=== PATIENT | male | born 1960 | race Two or more races ===

== ENCOUNTER 2020-09-01 16:49 | Emergency (ER) | payer OTHER ==
[2020-09-01] MEDS ORDERED: Lactated Ringers 500 ML IV ONE (17:03)
[2020-09-01] MEDS ORDERED: Sodium Chloride 0.9% 10 ML Syringe FLUSH PRN (17:03)
[2020-09-01] MEDS ORDERED: Iopamidol 612 MG/ML 50 ML SDV IVPUSH ONE (17:03)
[2020-09-01] MEDS ORDERED: Iopamidol 612 MG/ML 100 ML Bottle IVPUSH ONE (17:03)
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
[2020-09-01] MEDS ORDERED: Lactated Ringers 1,000 ML IV SCH ×2 (17:15→20:30)
--- NOTE | 2020-09-01 17:39 | CT ---
CT cervical spine Technique: Multiple axial sections were obtained from above C1 inferiorly to the top of T2. Reconstructed coronal and sagittal images were obtained. Comparison: No prior cervical spine imaging is available. Findings: Minimal disc space narrowing is noted at C5-6. Anterior osteophytes are seen at C3-4 through C6-7. Mild posterior osteophytes are noted at C5-6 and C6-7. Small degenerative cystic change is noted within the inferior C5 vertebral body. Mild degenerative apophyseal change is seen. Moderate right-sided neural foraminal stenosis is seen at C3-4. Mild right-sided neural foraminal stenosis is noted at C4-5. Other neural foramina are felt to be fairly well patent. No fracture is seen. No abnormal subluxation is seen. Minimal scoliosis is noted. Impression: 1. Degenerative change and mild scoliosis. 2. Nothing acute is appreciated on CT study of the cervical spine. Diagnostic code #2
--- NOTE | 2020-09-01 17:45 | CT ---
Head CT Technique: Multiple axial sections through the brain were obtained. Intravenous contrast was not utilized. Reconstructed coronal and sagittal images were obtained. Comparison: No previous intracranial imaging is available. Findings: Ventricles along with basal cisterns and sulci over the convexities are within normal limits for the patient's age. Small high density area is seen within the posterior right temporal region which measures approximately 2 mm. This is most likely due to an incidental small calcification. No other abnormal parenchymal densities are seen. No evidence of intracranial hemorrhage is seen. No midline shift or mass-effect is seen. Bone window settings were reviewed. No acute calvarial abnormality is appreciated. Mucosal thickening is seen within both maxillary sinuses with mild mucosal thickening seen within the ethmoid sinuses. No acute mastoid sinus finding is seen. Impression: 1. Sinus findings which are most likely chronic. 2. Small finding felt to represent incidental calcification. 3. Nothing acute is seen on noncontrast head CT exam. Diagnostic code #2
[2020-09-01] MEDS ORDERED: Diphtheria,Pertussis(Acell),Tetanus Vaccine 0.5 ML Syringe IM ONE (17:56)
--- NOTE | 2020-09-01 17:57 | CT ---
CT chest Technique: Multiple axial sections through the chest were obtained. Intravenous contrast was utilized. Reconstructed coronal and sagittal images were obtained. Comparison: No prior CT chest or chest x-rays are available. Findings: Lungs are clear with no acute parenchymal change. No pleural effusions are seen. No pneumothorax is identified. Thoracic aorta shows mild atherosclerotic calcification. No mediastinal adenopathy is seen. No axillary adenopathy is seen. Bone window settings were reviewed. Slight degenerative spurring is seen within the lower thoracic spine. No acute osseous abnormality is appreciated. Impression: 1. Nothing acute is appreciated on CT study of the chest. Diagnostic code #2 CT abdomen and pelvis Technique: Multiple axial sections were obtained from above the dome of the diaphragm inferiorly through the pubic symphysis. Intravenous contrast was utilized. No oral contrast has been given. Delayed images were also obtained through the abdomen and pelvis. Reconstructed coronal and sagittal images were obtained. Comparison: No prior abdominal or pelvic imaging is available. Findings: Cyst is noted within the right lobe of the liver measuring 2.1 cm. Liver shows no other focal abnormality. There is a mild to moderate hiatal hernia being seen. Spleen is normal in size. Adrenal glands show no nodule. Pancreas shows no abnormality. Gallbladder shows no calcified gallstones. Kidneys show symmetric contrast enhancement. Small lower density abnormality is noted within the upper pole and lower pole of the right kidney which is felt compatible with minimal cysts which measure around 5 mm. Delayed images show contrast excretion from both kidneys into the ureters and bladder. Abdominal aorta shows no aneurysm. Small retroperitoneal lymph nodes are seen which are believed to be normal. Appendix is seen which is normal in size. Visualized bowel appears without dilatation. No pelvic mass or adenopathy is seen. Prostate gland is somewhat enlarged. No free fluid or inflammatory change is appreciated. Bone window settings were reviewed which show degenerative change within both sacroiliac joints. Mild disc space narrowing is seen at L5-S1. Lucency is noted within the tip of the transverse process of L5 which appears to be old. No fracture is appreciated within the lumbar spine. Impression: 1. Mild degenerative change within the lumbar spine and within the sacroiliac joints. 2. Liver cysts and 2 right renal cysts. Small to moderate size hiatal hernia. 3. Prostate gland is somewhat large. 3. Nothing acute is appreciated on CT study of the abdomen. Diagnostic code #2
--- NOTE | 2020-09-01 19:43 | CR ---
Left hand: 4 views of the left hand were obtained. Comparison: No prior hand study is available. Mildly displaced fracture is noted within the distal radius involving the metaphysis. Degenerative change is seen within the CMC joint of the thumb. Small calcification is seen within the posterior wrist most likely old in etiology. No additional fracture or other bony abnormality is seen. Impression: 1. Mildly displaced distal left radial fracture. 2. Degenerative change as noted above. 3. No other acute abnormality is appreciated. Diagnostic code #3
--- NOTE | 2020-09-01 19:43 | CR ---
Left forearm: 2 views of the left forearm were obtained. Comparison: No prior forearm study is available. Fracture is noted within the distal radius involving the metaphysis. Displacement is seen of this fracture on the lateral view. Soft tissue swelling is noted. Degenerative change is noted between the CMC joint of the thumb. No additional fracture or other abnormality is appreciated. Impression: 1. Mildly displaced distal left radial fracture involving the metaphysis. 2. Degenerative change within the CMC joint. 3. Soft tissue swelling. Diagnostic code #3
--- NOTE | 2020-09-01 19:48 | CR ---
Left wrist: 4 views of the left wrist were obtained. Comparison: No prior left wrist study. Distal left radial fracture is seen which mostly involves the metaphysis. There is posterior displacement seen as well as posterior impaction which causes dorsal tilt of the distal radial articular margin. Small calcifications are seen off the wrist which are believed to be old. Degenerative change is seen within the CMC joint of the thumb. Soft tissue swelling is noted. Impression: 1. Distal radial fracture with displacement and posterior impaction. 2. Diffuse soft tissue swelling. 3. Degenerative change within the CMC joint of the thumb. Diagnostic code #3
--- NOTE | 2020-09-01 19:53 | CR ---
Right foot: 3 views of the right foot were obtained. Comparison: No prior foot study is available. Minimal plantar spur is seen. Small spur is noted at the attachment of the Achilles tendon to the calcaneus. Lucent line is noted on the lateral view within the navicular bone suspicious for fracture. Fractures are noted within the distal second, third and fourth metatarsals. No additional fracture or other bony abnormality is appreciated. Several calcifications are seen off the base of the fifth metatarsal which likely represent old injury. Impression: 1. Fractures within the distal second through fourth metatarsals. 2. Probable fracture within the navicular bone. 3. Other findings believed to be incidental as noted above. Diagnostic code #3
--- NOTE | 2020-09-01 19:54 | CR ---
Right tibia and fibula: AP and lateral views of the right tibia and fibula were obtained. Comparison: No previous study. Small calcification is seen off the upper fibula which appears well corticated and old. Calcification is noted within the distal anterior soft tissues within the birch which appears to be old. Calcaneal spurs are seen. Minimal spur off the anterior proximal tibia at the attachment of the patellar ligament. Probable navicular fracture is again noted. No additional fracture or other acute abnormality is appreciated. Impression: 1. Probable navicular fracture. 2. Other findings believed to be incidental as noted above. Diagnostic code #3
--- NOTE | 2020-09-01 20:28 | CT ---
CT right foot Technique: Multiple axial sections through the right foot were obtained. Intravenous contrast was not utilized. Limitations: Severe motion is seen which significantly limits the exam. Comparison: Prior foot radiographic study performed earlier on the same day (5:34 PM). Findings: Fracture is seen within the navicular bone as well as cuboid bone. Fractures are suggested within the distal second through fourth metatarsals. No other abnormality is obviously appreciated. Soft tissue swelling is noted. Impression: 1. Very limited study due to motion artifact. 2. Probable fractures within the navicular bone and cuboid bone. Probable fractures within the distal second through fourth metatarsals. 3. Please consider repeating the study when patient is able to cooperate. Diagnostic code #3 I agree with preliminary report from [facility], finalized on 09/01/20, 9:03 PM CDT, code 1
== END 2020-09-01 21:39 ==
LOC: EDSEX 16:49 → JD.ED 16:49
DX: S92.321A Displaced fracture of second metatarsal bone, right foot, initial encounter for closed fracture (principal); S92.331A Displaced fracture of third metatarsal bone, right foot, initial encounter for closed fracture; S92.341A Displaced fracture of fourth metatarsal bone, right foot, initial encounter for closed fracture; S92.251A Displaced fracture of navicular [scaphoid] of right foot, initial encounter for closed fracture; S52.502A Unspecified fracture of the lower end of left radius, initial encounter for closed fracture; Z23 Encounter for immunization; V59.49XA Driver of pick-up truck or van injured in collision with other motor vehicles in traffic accident, initial encounter
CPT/HCPCS: 29125; 36415; 70450; 71260; 72125; 73090; 73110; 73130; 73590; 73620; 73700; 74177; 80053; 81003; 82150; 83690; 85025; 90471; 90715; 99285; J7120; Q9967; 99284